=== PATIENT | male | born 1955 | race Caucasian/White ===

== ENCOUNTER 2021-12-14 10:30 | Emergency (ER) | payer OTHER, SELFPAY ==
--- NOTE | ~2021-12-14 | XR_ITS ---
EXAMINATION: XR chest 2V 12/14/2021 11:36 INDICATION: 2 weeks post Covid infection PROCEDURE: 2 view chest COMPARISON: 11/25/2009 FINDINGS: The lungs are clear. The cardiomediastinal silhouette is within normal limits. There are no pleural effusions. There is no pneumothorax suspected. IMPRESSION: 1: NO ACUTE CARDIOPULMONARY DISEASE. Reviewed, dictated and finalized at location B.
[2021-12-14 10:41] VITALS: BP 152/76; PULSE 69; RESP 18; TEMP 37.1; O2SAT 98
[2021-12-14 10:52] VITALS: BP 152/76; PULSE 69; RESP 18; TEMP 37.1; O2SAT 98
--- NOTE | 2021-12-14 11:31 | ED.GENADULT ---
HPI - General Adult General Chief complaint: Ear Stated complaint: Congestion ear pain Source: patient, RN notes reviewed and old records reviewed Mode of arrival: ambulatory Limitations: no limitations History of Present Illness HPI narrative: 66-year-old male who presents to [facility] care with complaints of congestion, left ear pain for past 3 days and persistent cough, since patient was diagnosed with COVID 2 weeks ago. Patient received steroid, Symbicort and also Paxlovid from telephone visit with his PCP on the 02 of December. Patient states that he had been feeling better except for cough till past 3 days when he has developed congestion and left ear pain and pressure with decrease in hearing MD complaint: Persistent cough left ear pain and nasal congestion Onset (ago): day(s) (increased symptoms 3 days) Severity scale (1-10): 3 Treatments prior to arrival: other (inhaler has completed steroid and Paxlovid post covid) Related Data Home Medications Medication Instructions Recorded Confirmed amlodipine 5 mg tablet 5 mg PO DAILY 12/14/21 12/14/21 ezetimibe 10 mg tablet 10 mg PO DAILY 12/14/21 12/14/21 irbesartan 300 mg tablet 300 mg PO DAILY 12/14/21 12/14/21 nebivolol 10 mg tablet 10 mg PO DAILY 12/14/21 12/14/21 spironolactone 25 mg tablet 25 mg PO DAILY 12/14/21 12/14/21 Allergies Allergy/AdvReac Type Severity Reaction Status Date / Time No Known Allergies Allergy Unverified 12/14/21 10:42 Review of Systems Review of Systems: CONSTITUTIONAL: Denies recent fever, chills, or sweats. EYES: Denies visual changes, redness, or discharge. ENT: Some rhinorrhea, congestion,no sore throat, positive for left ear pain otalgia. CARDIOVASCULAR: Denies chest pain, palpitations, or edema. RESPIRATORY: positive for persistent cough denies dyspnea. GASTROINTESTINAL: Denies abdominal pain, nausea, vomiting, or diarrhea. GENITOURINARY: Denies dysuria or hematuria. SKIN: Denies rash or itching. MUSCULOSKELETAL: Denies back pain, joint pain, or myalgia. NEUROLOGIC: Denies headache, numbness, or weakness. PSYCHIATRIC: Denies anxiety or depression. All systems reviewed & are unremarkable except as noted in HPI and below [facility] Past Medical History Medical History (Updated 12/15/21 @ 14:02 by Christelle Miranda NP) Elevated cholesterol Hypertension Surgical History Surgical History (Updated 12/15/21 @ 14:04 by Christelle Miranda NP) History of tonsillectomy Social History Social History (Updated 12/15/21 @ 14:03 by Christelle Miranda NP) Smoking status: Never smoker Alcohol intake: unknown Substance use type: does not use Living arrangements: with family Gender identity (if verbalized by the patient): Male Comments At time of signature, agree with nursing past medical, surgical, social and family history. There is no relevant family history pertinent to the presenting complaint Exam Narrative: GENERAL: Well-appearing, well-nourished, and in no acute distress. HEAD: Normocephalic, atraumatic. EYES: PERRLA and EOMI. ENT: Nares with some redness, clear rhinorrhea no epistaxis. Mucous membranes moist. TM's normal and ear canals without redness, small amount of ear wax noted, throat pink no lesions or tonsil present NECK: Supple.no lymphadenopathy CHEST: decrease bases on auscultation. No respiratory distress on room air dry cough noted HEART: Regular rate and rhythm. No murmur heard. Normal peripheral pulses. ABDOMEN: Soft, nontender, nondistended, normal active bowel sounds. EXTREMITIES: Normal range of motion. No edema. SKIN: Warm, dry, no rash. NEURO: No focal deficits. Alert and oriented x3. Course Course Level of Care: Express Care Visit Vital Signs Vital signs: Vital Signs Temperature 37.1 C 12/14/21 10:41 Pulse Rate 69 12/14/21 10:41 Respiratory Rate 18 12/14/21 10:41 Blood Pressure 152/76 H 12/14/21 10:41 Pulse Oximetry 98 12/14/21 10:41 Oxygen Delivery Room Air 12/14/21 10:41
== END 2021-12-14 12:19 | disposition home or self-care (01) ==
PROVIDERS: Emergency Provider Registered Nurse; PCP Internal Medicine
DX: J06.9 Acute upper respiratory infection, unspecified (principal); R05.9 Cough, unspecified; E78.00 Pure hypercholesterolemia, unspecified; I10 Essential (primary) hypertension; Z86.16 Personal history of COVID-19
CPT/HCPCS: 71046; 99203; G0463

== ENCOUNTER 2022-10-15 11:23 | Emergency (ER) | payer OTHER, SELFPAY ==
[2022-10-15 11:34] VITALS: BP 177/81; PULSE 64; RESP 16; TEMP 36.6; O2SAT 98
--- NOTE | 2022-10-15 11:47 | ED.EAR ---
HPI - Ear Problem General Chief complaint: Ear Stated complaint: Ear Problem Time Seen by Provider: 10/15/22 11:49 Source: patient and RN notes reviewed Mode of arrival: ambulatory Limitations: no limitations History of Present Illness HPI Narrative: 66-year-old male presents with concern for ear fullness and decreased hearing in bilateral ears. Reports history of having his ears cleaned out. He denies drainage from the ears. MD Complaint: decreased hearing Related Data Home Medications Medication Instructions Recorded Confirmed amlodipine 5 mg tablet 5 mg PO DAILY 12/14/21 10/15/22 ezetimibe 10 mg tablet 10 mg PO DAILY 12/14/21 10/15/22 irbesartan 300 mg tablet 300 mg PO DAILY 12/14/21 10/15/22 nebivolol 10 mg tablet 10 mg PO DAILY 12/14/21 10/15/22 Allergies Allergy/AdvReac Type Severity Reaction Status Date / Time No Known Allergies Allergy Unverified 12/14/21 10:42 Review of Systems Review of Systems: CONSTITUTIONAL: Denies malaise, chills, sweats, or fever. EYES: Denies visual changes, redness, or discharge. ENT: Denies rhinorrhea, congestion, sinus pain, and sore throat. Reports bilateral ear fullness CARDIOVASCULAR: Denies chest pain, palpitations, or edema. RESPIRATORY: Denies cough. Denies dyspnea. GASTROINTESTINAL: Denies abdominal pain, nausea, vomiting, diarrhea SKIN: Denies rash or itching. MUSCULOSKELETAL: Denies myalgia. NEUROLOGIC: Denies headache. All systems reviewed & are unremarkable except as noted in HPI and below [facility] Past Medical History Medical History (Updated 10/15/22 @ 12:08 by Jigna Mcfarland NP) Elevated cholesterol Hypertension Surgical History Surgical History (Updated 12/15/21 @ 14:04 by Christelle Miranda NP) History of tonsillectomy Social History Social History (Updated 12/15/21 @ 14:03 by Christelle Miranda NP) Smoking status: Never smoker Alcohol intake: unknown Substance use type: does not use Living arrangements: with family Gender identity (if verbalized by the patient): Male Comments At time of signature, agree with nursing past medical, surgical, social and family history. There is no relevant family history pertinent to the presenting complaint Exam Narrative: GENERAL: Well-appearing, well-nourished, and in no acute distress. HEAD: Normocephalic EYES: PERRLA, conjunctivae clear ENT: Nares clear. Mucous membranes moist. TM not visible due to excess cerumen bilaterally; no tragal tenderness. NECK: Supple. No lymphadenopathy CHEST: No respiratory distress, speaks in full sentences. HEART: Regular rate and rhythm. No murmur heard. SKIN: Warm, dry, no rash. NEURO: Alert and oriented x3. PSYCH: Normal mood and affect Course Course Emergency Course: Patient is aware of diagnosis, understands and agrees to treatment plan. Anticipatory guidance given. Patient agrees to follow-up as directed and is aware of reasons to seek care at the emergency department. Portions of this record may have been created with voice recognition software Level of Care: Express Care Visit Vital Signs Vital signs: Vital Signs Temperature 97.8 F 10/15/22 11:34 Pulse Rate 64 10/15/22 11:34 Respiratory Rate 16 10/15/22 11:34 Blood Pressure 177/81 H 10/15/22 11:34 Pulse Oximetry 98 10/15/22 11:34 Oxygen Delivery Room Air 10/15/22 11:34 Temperature 97.8 F 10/15/22 11:34 Pulse Rate 64 10/15/22 11:34 Respiratory Rate 16 10/15/22 11:34 Blood Pressure 177/81 H 10/15/22 11:34 Pulse Oximetry 98 10/15/22 11:34 Oxygen Delivery Room Air 10/15/22 11:34 Reviewed. Procedures Ear Wax Removal Both Ears: Ear Wax Removal Date: 10/15/22 Ear Wax Removal Time: 11:53 Cerumenolytic Used: other Results: Re-examined: cerumen removed completely TM Examination: TM(s) intact, normal appearance Ear Canal Exam: atraumatic Patient Tolerated Procedure: well Complications: no prob
== END 2022-10-15 12:22 | disposition home or self-care (01) ==
PROVIDERS: Emergency Provider Nurse Practitioner; PCP Internal Medicine
DX: H61.23 Impacted cerumen, bilateral (principal); E78.00 Pure hypercholesterolemia, unspecified; I10 Essential (primary) hypertension
CPT/HCPCS: 69210; 99212; A9270; G0463